=== PATIENT | female | born 1995 | race Caucasian/White ===

== ENCOUNTER 2017-12-06 13:01 | Inpatient (IN) | payer OTHER ==
--- NOTE | 2017-12-06 13:07 | EDPHY ---
H & P Time Seen by Provider: 12/06/17 13:06 HPI/ROS: CHIEF COMPLAINT: Overdose HISTORY OF PRESENT ILLNESS: Patient was brought in on a mental health hold. She took Klonopin and extended-release Wellbutrin, and Trazodone; 30 total. Her boyfriend woke up from a nap in came out to see the patient noticed she was acting funny at which time she admitted to him that she had overdosed. Patient arrives on a mental health hold for overdose with intent to injure herself. Currently has no medical complaints. Brought in by EMS. REVIEW OF SYSTEMS: Eye: no change in vision ENT: no sore throat Cardiac: no chest pain or syncope Pulmonary: no cough or SOB Abdomen: no vomiting, diarrhea, abdominal pain Musculoskeletal: no back pain Skin: no rash Neuro: no headache Constitutional: no fever : no urinary symptoms A comprehensive 10 point review of systems is otherwise negative aside from elements mentioned in the history of present illness. PAST MEDICAL HISTORY: Thyroid, depression, anxiety. Social history: Denies alcohol General Appearance: Sleepy but answers questions and is cooperative. Eyes: No scleral icterus. ENT, Mouth: Normal mucous membranes. Respiratory: Normal respiratory effort, breath sounds equal, lungs are clear to auscultation. Cardiovascular: Regular rate and rhythm. Gastrointestinal: Abdomen is soft and non tender. Neurological: Alert, face symmetric, normal motor and sensory in extremities. No clonus. Toes downgoing bilaterally. Skin: Warm and dry, no rashes. Musculoskeletal: No peripheral edema. Psychiatric: Patient has depressed affect. Emergency Department course/MDM: Screening laboratory ordered. Patient is sleepy but appears to be protecting her airway at this point. Since she has overdosed on multiple medications including extended-release Wellbutrin she will be admitted to the ICU on a mental health hold for observation, as she is at risk for seizures for at least the next 24 hr. 1318: Babar Navarro. 1510: 98/62, hr 77. Sleeping but protecting her airway. Constitutional: Initial Vital Signs Temperature (C) 37 C 12/06/17 13:01 Heart Rate 91 12/06/17 13:01 Respiratory Rate 14 12/06/17 13:01 Blood Pressure 134/95 H 12/06/17 13:01 O2 Sat (%) 98 12/06/17 13:01 O2 Delivery Mode Room Air Allergies/Adverse Reactions: No Known Allergies Allergy (Verified 12/06/17 13:55) Home Medications: Medication Instructions Recorded Bupropion HCl [Wellbutrin Xl] 300 mg PO DAILY 12/06/17 Thyroid [Alpine Thyroid 60 MG (*)] 90 mg PO Q2D 12/06/17 Thyroid [Alpine Thyroid 60 MG (*)] 120 mg PO Q2D 12/06/17 Venlafaxine Xr [Effexor Xr 75MG 75 mg PO DAILY 12/06/17 (*)] clonazePAM [klonoPIN (*)] 0.5 mg PO DAILY 12/06/17 traZODone [traZODONE 100MG (*)] 100 mg PO HS PRN 12/06/17 Medical Decision Making - Diagnostics EKG Interpretation: 12-lead EKG interpreted by me; official reading is in trace master. My interpretation is sinus rhythm rate 90 with normal intervals. Differential Diagnosis: The differential considered including but not limited to alcohol intoxication, drug overdose, functional disorder, primary psychiatric disorder. Critical Care Time: Critical care time spent by me, Dr. Trujillo, exclusively with the care of this patient was 20 minutes, exclusive of PA or MACHINE CEMENTER time and exclusive of separate procedures. The organ system at risk was metabolic and I ordered diagnostics, monitoring hospitalist consultation to stabilize the patient and prevent worsening of the patient's condition. - Data Points Laboratory Results: Laboratory Results 12/06/17 13:05 12/06/17 13:05 12/06/17 12/06/17 12/06/17 13:20 13:05 13:05 WBC RBC Hgb Hct MCV MCH MCHC RDW Plt Count MPV Neut % (Auto) Lymph % (Auto) Long % (Auto) Eos % (Auto) Baso % (Auto) Nucleat RBC Rel Count Absolute Neuts (auto) Absolute Lymphs (auto) Absolute Monos (auto) Absolute Eos (auto) Absolute Basos (auto) Absolute Nucleated RBC Immature Gran % Immature Gran # Sodium 141 mEq/L mEq/L (135-145) Potassium 4.7 mEq/L mEq/L (3.5-5.2) Chloride 104 mEq/L mEq/L (97-110) Carbon Dioxide 24 mEq/l mEq/l (22-31) Anion Gap 13 mEq/L mEq/L (8-16) BUN 16 mg/dL mg/dL (7-23) Creatinine 0.8 mg/dL mg/dL (0.6-1.0) Estimated GFR > 60 Glucose 90 mg/dL mg/dL (70-100) Calcium 9.7 mg/dL mg/dL (8.5-10.4) Beta HCG, Qual NEGATIVE Salicylates < 1.0 mg/dL L mg/dL (2.0-20.0) Urine Opiates Screen NEGATIVE (NEGATIVE) Acetaminophen < 10 mcg/mL L mcg/mL (10-30) Urine Barbiturates NEGATIVE (NEGATIVE) Ur Phencyclidine Scrn NEGATIVE (NEGATIVE) Ur Amphetamine Screen NEGATIVE (NEGATIVE) U Benzodiazepines Scrn NEGATIVE (NEGATIVE) Urine Cocaine Screen NEGATIVE (NEGATIVE) U Marijuana (THC) Screen NON-NEGATIVE H (NEGATIVE) Ethyl Alcohol < 10 mg/dL mg/dL (0-10) 12/06/17 13:05 WBC 7.42 10^3/uL 10^3/uL (3.80-9.50) RBC 5.30 10^6/uL 10^6/uL (4.18-5.33) Hgb 14.9 g/dL g/dL (12.6-16.3) Hct 46.0 % % (38.0-47.0) MCV 86.8 fL fL (81.5-99.8) MCH 28.1 pg pg (27.9-34.1) MCHC 32.4 g/dL g/dL (32.4-36.7) RDW 14.4 % % (11.5-15.2) Plt Count 220 10^3/uL 10^3/uL (150-400) MPV 10.3 fL fL (8.7-11.7) Neut % (Auto) 69.0 % % (39.3-74.2) Lymph % (Auto) 21.6 % % (15.0-45.0) Long % (Auto) 7.5 % % (4.5-13.0) Eos % (Auto) 1.3 % % (0.6-7.6) Baso % (Auto) 0.5 % % (0.3-1.7) Nucleat RBC Rel Count 0.0 % % (0.0-0.2) Absolute Neuts (auto) 5.11 10^3/uL 10^3/uL (1.70-6.50) Absolute Lymphs (auto) 1.60 10^3/uL 10^3/uL (1.00-3.00) Absolute Monos (auto) 0.56 10^3/uL 10^3/uL (0.30-0.80) Absolute Eos (auto) 0.10 10^3/uL 10^3/uL (0.03-0.40) Absolute Basos (auto) 0.04 10^3/uL 10^3/uL (0.02-0.10) Absolute Nucleated RBC 0.00 10^3/uL 10^3/uL (0-0.01) Immature Gran % 0.1 % % (0.0-1.1) Immature Gran # 0.01 10^3/uL 10^3/uL (0.00-0.10) Sodium Potassium Chloride Carbon Dioxide Anion Gap BUN Creatinine Estimated GFR Glucose Calcium Beta HCG, Qual Salicylates Urine Opiates Screen Acetaminophen Urine Barbiturates Ur Phencyclidine Scrn Ur Amphetamine Screen U Benzodiazepines Scrn Urine Cocaine Screen U Marijuana (THC) Screen Ethyl Alcohol Departure - Departure Disposition: [facility] Acute Clinical Impression: Drug overdoses Qualifiers: Encounter type: initial encounter Injury intent: intentional self-harm Qualified Code(s): T50.902A - Poisoning by unspecified drugs, medicaments and biological substances, intentional self-harm, initial encounter Condition: Fair
--- NOTE | 2017-12-06 13:12 | CPEKG ---
Heart Rate: 90 RR Interval: 667 P-R Interval: 144 QRSD Interval: 84 QT Interval: 380 QTC Interval: 465 P Friendship: 58 QRS Friendship: 84 T Wave Friendship: 26 EKG Severity - NORMAL ECG - EKG Impression: SINUS RHYTHM Electronically Signed By: Shun Trujillo 06-Dec-2017 13:20:15
[2017-12-06 13:22] LABS: PLATELET COUNT 220 10^3/uL (150-400)
[2017-12-06] MEDS ORDERED: PROMETHAZINE HCL 25 MG/ML INJ IVP PRN (13:56)
[2017-12-06] MEDS ORDERED: ACETAMINOPHEN 325 MG TAB PO PRN (13:56)
[2017-12-06] MEDS ORDERED: LR 1,000 ML IV SCH (14:30)
--- NOTE | 2017-12-06 19:09 | PDGENHP ---
History and Physical History and Physical: CC: Intentional overdose HISTORY: This patient is long history of anxiety did disorder and depression and alcohol use comes in via the ER today brought in by boyfriend with an intentional suicide attempt, and sent sternal polypharmacy overdose. It sounds like the patient took a lot of prescribed tablets somewhere around mid day today but the timing is not entirely clear. There is a bottle of Wellbutrin 300 mg which has been emptied and it appears that his many as 20 tablets may be missing in appropriately. There also bottles of Klonopin and trazodone and the patient reports taking significant over doses of those but is not possible to determine number of pills. These are medicines that were prescribed to her by her psychiatrist. The patient herself is not really able to give me any other significant history at this time due to significant sedation. Most history comes to me via the ER staff and her boyfriend who was here at the bedside with her. She does admit to drinking regularly. Her boyfriend tells me that she drinks a glass of vodka that he thinks might be 5-6 shots of vodka at least every other day and often daily. The patient did mention that she has drinks daily but she was unable to elaborate or clarify. It sounds like there is no significant street drug use but some marijuana use as well. It does not sound like she has had any other suicide attempts. The patient's exact intention and thought processes leading to this overdose are unavailable issues not able to provide this history for us. 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 I have reviewed the list and ordered appropriate medicines. PHYSICAL EXAMINATION: Vital Signs: So far stable vital signs without hypoxia or fever Loading Checker: Sinus rhythm with no other concerning abnormalities Examination: General: Quite sedated but awakens to occasionally attempt to mumble answer to a question, opens eyes and does briefly make eye contact, falls asleep quickly moved since speaks slowly when she does. No signs of anxiety or tremor. No specific signs of focal neurologic abnormality but exam severely limited by her sedation. Skin: warm, dry, good color, no rash HEENT: normal with no signs of injury Neck: no mass or jvd Resps: relaxed but slow Lungs: clear breath sounds Heart: regular, no murmur Abdomen: soft, nondistended, no signs of tenderness but exam limited, +BS, no mass Upper Extremities: normal Lower Extremities: no edema, warm No Bleeding or bruising IV site: looks normal LABORATORY DATA: Initial CBC and metabolic panel negative test negative Tox screen positive for marijuana Negative tests for alcohol, Tylenol, salicylates RADIOLOGY STUDIES: No studies at this time 12 LEAD EKG: I reviewed the tracing from the ER study, a sinus rhythm with no other concerning abnormalities ASSESSMENT: -acute encephalopathy from polypharmacy intentional ingestion -intentional polypharmacy overdose, suspect suicide attempt -ongoing depression and anxiety disorders -chronic alcohol usage fairly substantial level, either daily or at least every other day a little bit hard to determine -marijuana abuse This patient is at very high risk for seizures including status epilepticus, and the seizures could be delayed in onset even 2-3 days after her ingestion. She is also at high risk of serotonin syndrome with dangerous instabilities of blood pressure and pulse rates, ventricular arrhythmias, other neurologic complications, nausea vomiting with aspiration risk, any of which could be aggravated by potential for alcohol withdrawal, as well as the risk of developing potentially severe alcohol withdrawal syndrome. She will need very close monitoring, seizure precautions, supportive care and may need other specific interventions including benzodiazepines, Precedex drip, pressors, or other measures. Clearly when she is done with this she will need further assessment from mental health standpoint PLANS: -patient is on an M1 hold --inpatient admission to ICU -supportive care with hydration, seizure precautions, DVT prophylaxis, per peptic ulcer prophylaxis -other interventions will depend on her progress and other complications that arise, see above -eventual mental health evaluation when medically stable otherwise I reviewed all the above in detail at length with the patient's boyfriend at the bedside today. I have reviewed the patient's case in detail with Dr. Elias Josue
--- NOTE | 2017-12-06 19:38 | PDMN ---
Medical Necessity Medical necessity: C/M review: Patient meets INPT criteria under [facility] Drug ingestion or overdose: Acute encephalopathy from polypharmacy (Wellbutrin , Klonopin, Trazadone) intentional overdose, suspect suicide attempt, requiring future mental health assessment during this admission when medically stable, ongoing IV fluids, M1 hold, seizure precautions, CIWA protocol, close monitoring in ICU, comorbid depression, anxiety, alcohol abuse, chronic alcohol usage at a fairly substantial level, patient is at high risk is seizures, serotonin syndrome alcohol withdrawal. anticipates > 2 MN LOS foe ongoing med nec for eval and TX of above.
[2017-12-06] MEDS ORDERED: FAMOTIDINE 20 MG TAB PO SCH (21:00)
[2017-12-06] MEDS: LORazepam 2 MG/ML INJ IVP PRN (21:56)
--- NOTE | 2017-12-06 22:36 | HOSPPROG ---
Hospitalist Progress Note Assessment/Plan: 35 min of critical care time spent with this patient, at bedside, with , with RN, addressing the following issues: -RN notified me of seizure-like activity characterized as bilateral upper extremity shaking, rhythmic movements, as well as back and forth head movements , seemingly uncontrollable but without overt loss of consciousness, patient able to follow commands after the event abated, 1-2 minutes in duration -discussed with RN, ordered as needed IV Ativan to be available if movements recurred as patient is high risk for seizure activity given her overdose of 20- 30 pills of Wellbutrin, in combination of trazodone, possibly venlafaxine, Klonopin, as well as heavy drinking history and not drinking for approximately 2 days -approximately 10:00 p.m., the patient experienced recurrence of the similar movements as well as arching her back, witnessed by her partner, received 1 mg of IV Ativan by nurse, then movements reoccurred -evaluated patient at bedside, she is currently able to follow some 1 step commands including 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, patient unable to focus her eyes, has reactive pupils, verbalizing nonsensical speech, heart rate is tachycardic, around 120, with regular rhythm, lungs are clear to auscultation but patient does not participate in deep inspiratory 1 exam, she does not appear to be seizing on my evaluation -given patient's 3rd recurrence of possible seizure-like activity as well as her exceptionally high risk of ongoing seizure and possibility of subclinical status, will load her with 500 mg of IV Keppra and continue the as needed Ativan if seizure-like activity reoccurs -given her risk of aspiration and her partners report of coughing after the 2nd episode, will get a chest x-ray to evaluate for possible aspiration, repeating her CBC, metabolic profile, lactic acid level -will change her IV fluids from lactated Ringer's to D5 half normal saline given her possibility of seizure and subsequent lactic acidosis -will continue on seizure precautions and order neuro consultation for tomorrow a.m. -verbally signed out the patient's situation to juvenile correctional officer Dr. Karlie Cho Objective: Vital Signs Temp Pulse Resp BP Pulse Ox 36.8 C 115 H 18 120/80 96 12/06/17 19:00 12/06/17 21:40 12/06/17 21:40 12/06/17 21:40 12/06/17 21:40 12/05/17 12/06/17 12/07/17 05:59 05:59 05:59 Intake Total 1000 Output Total 1100 Balance -100 ICD10 Worksheet Patient Problems: Problems Problem Status Onset Drug overdoses Acute
[2017-12-06] MEDS: levETIRAcetam 500MG/NACL 100 ML IV SCH (22:53)
[2017-12-06] MEDS: FAMOTIDINE 20 MG/NACL 50 ML IV SCH (22:58)
[2017-12-06] MEDS: D5W 1/2 NS 1,000 ML IV SCH (22:58)
[2017-12-06 23:02] LABS: PLATELET COUNT 222 10^3/uL (150-400)
[2017-12-07] MEDS ORDERED: MAGNESIUM SULF 1 GM/DEXTROSE 100 ML IV ONE (00:02)
[2017-12-07 05:09] LABS: PLATELET COUNT 226 10^3/uL (150-400)
[2017-12-07] MEDS: D5W 1/2 NS 1,000 ML IV SCH ×2 (05:51→16:22)
[2017-12-07] MEDS: LORazepam 2 MG/ML INJ IVP PRN ×2 (07:30→10:02)
[2017-12-07] MEDS: levETIRAcetam 500MG/NACL 100 ML IV SCH ×2 (09:23→21:37)
[2017-12-07] MEDS: ENOXAPARIN 40 MG/0.4 ML SYR SC SCH (09:55)
[2017-12-07] MEDS: FAMOTIDINE 20 MG/NACL 50 ML IV SCH ×2 (09:55→21:37)
[2017-12-07] MEDS ORDERED: THIAMINE HCL 500 MG in NS 250 ML IV ONE (10:31)
--- NOTE | 2017-12-07 11:43 | CPEKG ---
Heart Rate: 112 RR Interval: 536 P-R Interval: 164 QRSD Interval: 96 QT Interval: 348 QTC Interval: 475 P Lincoln: 67 QRS Lincoln: 112 T Wave Lincoln: 5 EKG Severity - OTHERWISE NORMAL ECG - EKG Impression: SINUS TACHYCARDIA EKG Impression: RIGHT AXIS DEVIATION Electronically Signed By: Tadeo Meza 07-Dec-2017 12:20:48
--- NOTE | 2017-12-07 11:49 | HOSPPROG ---
Hospitalist Progress Note Assessment/Plan: DIAGNOSES: -acute suicide attempts -acute intentional overdose with multiple prescription medications including trazodone Wellbutrin and Klonopin -heavy alcohol use, probably daily -acute toxidrome including tachycardia, severe delirium, markedly increased psychomotor activity, and witnessed likely seizures as well as some myoclonus activity -the toxidrome mentioned above could be direct drug toxicity, serotonin syndrome and/or alcohol withdrawal syndrome -suspect thiamine deficiency -chronic depression and anxiety disorder -chronic hypothyroidism on thyroid replacement, elevated TSH now could indicate noncompliance with medication, under dosing, or could be a lab abnormality caused by her acute illness as above I reviewed the patient's care today with Dr Elias Josue Also seen on multidisciplinary rounds At this time her tachycardia and psychomotor activity or significant enough that I believe she needs to be treated with ongoing sedation medications and will start with some scheduled Ativan which will be helpful for reducing seizure activity, but if this is not enough to improve her clinical picture may need to begin some Precedex intravenously as well. PLANS: -continue supportive care and hydration -follow electrolyte levels closely -continue Keppra for now -add scheduled Ativan -follow response closely and consider adding Precedex depending on how she is doing -at this time there is no hypotension or bradycardia so no support needed for those, but those are possibilities and the nursing staff has been instructed to watch carefully for for these and report them -will check free T3 and free T4, and will repeat TSH as she resolved her acute syndrome, will continue for the moment giving her her prescribed dose of thyroid replacement SUBJECTIVE: Patient is unable to describe any symptoms Family and nursing staff note ongoing agitation confusion and 1 more episode this morning that appeared as possible seizure OBJECTIVE Vitals reviewed: Remains tachycardic 115-120, blood pressure and respirations are stable no fever Family Therapist, my review: Sinus tachycardia Exam: Rapidly fluctuating levels of alertness, severely delirious, market increase in psychomotor activity thrashing around in the bed very frequently, shifting attention to objects in the room and some objects that are not there indicating likely hallucinations, her speech output is now unintelligible, no longer following commands, pupils are equal, no tremor, no apparent signs of focal weakness, appears extremely anxious, family not sure if she recognizes them are not, she does briefly make eye time contact on some occasions when spoken to skin warm dry color ok resps not labored lungs clear BSs heart regular but fairly tachycardic abd soft nondistended, bowel sounds present limbs warm, no edema iv site ok Laboratory data: There is mild metabolic acidosis with anion gap of 17 Chemistries otherwise stable, white blood cell count is elevated A blood gas was done showing a pH 7.42 A TSH is done and shows level of 16, hard to know with certainty whether this is a real hypothyroid state or is altered laboratory measurements related to her acute illness; she does take thyroid replacement medication at home and I am unable to assess whether she is compliant with that. Objective: Vital Signs Temp Pulse Resp BP Pulse Ox 36.8 C 117 H 21 H 134/71 H 94 12/07/17 08:00 12/07/17 08:00 12/07/17 08:00 12/07/17 08:00 12/07/17 08:00 Laboratory Results 12/07/17 04:50 12/07/17 04:50 12/06/17 12/07/17 12/08/17 06:59 06:59 06:59 Intake Total 2300 Output Total 1100 Balance 1200 - Time Spent With Patient Time Spent with Patient: greater than 35 minutes Time Spent with Patient: Greater than 35 minutes spent on this patients care, greater than 50% of time spent counseling, educating, and coordinating care regarding the above mentioned plan. ICD10 Worksheet Patient Problems: Problems Problem Status Onset Drug overdoses Acute
--- NOTE | 2017-12-07 11:54 | ASMTCMCOM ---
CM Note CM Note Notes: 22 yaer old female admitted for Poly drug OD, Suicide attempt, Depression, Anxiety. Has a hx of ETOH and THC abuse. Confused, possible sz, Incontinent, ETOH W/D? Patient will need to be evaluated by TLC when medically stable. CM to follow. Date Signed: 12/07/2017 11:54 AM Electronically Signed By:Vesna Jaimes LCSW
--- NOTE | 2017-12-07 12:24 | ASMTCMCOM ---
CM Note CM Note Notes: Met with family and offered support and talked about what happens when patient clears. Patrick, patient's boyfriend is feeling responsible and having a hard time leaving her side. RN has done a good job of explaining symptoms of OD. CM to follow. Date Signed: 12/07/2017 12:23 PM Electronically Signed By:Vesna Jaimes LCSW
--- NOTE | 2017-12-07 13:20 | NEUROPROG ---
Assessment: HOSPITAL NEUROLOGY CONSULT REQUESTING: Man Sotelo MD REASON: possible seizures HPI: 22 year old woman with a history of anxiety/depression and alcohol abuse admitted yesterday after an intentional overdose with clonazepam, bupropion and trazodone. She has been markedly encephalopathic, with abnormal behaviors and movements concerning for seizure. Last evening the patient had 3 events concerning for seizure with extremity jerking/thrashing, arching of the back and shaking the head [id number] without LOC. Her partner, Patrick, was reached by phone and didn't provide much more in the description of the events, with exception that her eyes were closed with the events. This morning nursing witnessed an event with back arching, limb stiffening and fine shaking of the limbs and eye closure to which she was responsive to the nurse during the event. Patient was started on levetiracetam last evening after multiple doses of lorazepam didn't seem to prevent recurrent episodes. ROS: As per the HPI, otherwise a complete 12 point ROS was performed and is negative ALLERGIES AND MEDS: As recorded in the EMR - reviewed and reconciled PFSH: As per the intake H&P by Dr. Sotelo from yesterday EXAM: VS reviewed in EMR GEN: WDWN visibly agitated HEENT: NCAT, sclera anicteric, conjunctiva not injected, MMM, oropharynx clear, no scalp tenderness NECK: supple, nontender, no meningismus CV: RRR s1 s2 wo m/r/c/g. Carotid pulses 2+ wo bruit NEURO: MS: she is disoriented and fluctuating in her LOC going from somnolent to agitated. Her speech is at times appropriate to simple questions like name and age, but most of the time it is nonsensical. She does follow simple appendicular commands with prompting. Unable to assess higher cortical function due to encephalopathy. CN: pupils 5mm round and reactive. Unable to visualize fundi due to patient movement. Blinks to threat OU. Primary gaze centered. Full horizontal ocular motility with facial tracking, but profound motor impersistence. Facial sensation preserved to nox stim. Face symmetric. Hearing grossly intact to speech. Palatoglossal movements intact. Shoulder shrug intact MOTOR: normal bulk. Paratonic throughout. Moves all extremities against gravity with good resistive force to passive movement. She will not participate in formal segmental exam. She is restless and does thrash about at times, but no pathologic movements noted. SENSORY: withdraws to nox stim briskly in all extremities COORD: unable to assess REFLEX: plantars down. No clonus. DTRS 3/4. GAIT: unable to assess DATA REVIEW: Labs reviewed in EMR PERSONALLY INTERPRETED RESULTS AND DATA: nil IMPRESSION AND RECOMMENDATIONS: // TOXIC ENCEPHALOPATHY // PAROXYSMAL SPELLS OF ABNORMAL BEHAVIOR Patient with spells of abnormal behavior which aren't too compelling for seizure. Specifics that argue against seizure include [id number] head movement, eye closure, ability of patient to respond during some episodes. She does have a substrate for provoked seizures, including possible alcohol abuse with withdrawal and ingestion of excessive bupropion. In any event, I don't think it is unreasonable to continue levetiracetam for prophylaxis given her TRIAGE SPECIALIST hyperexcitability. However, it would also be reasonable to discontinue and observe. Can treat seizures with PRN lorazepam for activity concerning for seizure lasting longer than 5 minutes. Continue with seizure precautions. Continue supportive measures as per the primary team for overdose and alcohol withdrawal. Have family take smart-phone video of any concerning episodes for our review if needed. Will sign off. Recall PRN. Objective: Vital Signs Temp Pulse Resp BP Pulse Ox 36.9 C 113 H 18 113/73 96 12/07/17 12:00 12/07/17 12:00 12/07/17 12:00 12/07/17 12:00 12/07/17 12:00 Laboratory Results 12/07/17 04:50 12/07/17 04:50 12/06/17 12/07/17 12/08/17 05:59 05:59 05:59 Intake Total 2300 Output Total 1100 Balance 1200 Allergies/Adverse Reactions: No Known Allergies Allergy (Verified 12/06/17 13:55)
[2017-12-07] MEDS: THIAMINE HCL 500 MG in NS 100 ML IV SCH (13:42)
[2017-12-07] MEDS: LORazepam 2 MG/ML INJ IVP SCH ×3 (14:22→21:37)
--- NOTE | 2017-12-07 21:50 | GCON ---
[f rep st] CONSULTATION CRITICAL CARE CONSULTATION DATE OF CONSULTATION: 12/07/2017 REASON OF CONSULTATION: Drug overdose, suicide attempt. HISTORY: The patient is a 22-year-old with a history of anxiety and depression. She was admitted ye sterday after she took Wellbutrin 300 mg, approximately 20 tablets, Klonopin, trazodone, and possibly other unknown medications. She was brought in by her boyfriend. He states that she drinks signific ant amount of vodka almost daily. History is impossible to get from the patient. She has not been h ospitalized here previously. HOME MEDICATIONS: Included Klonopin, Wellbutrin, trazodone, Ambien, Effexor, as well as thyroid. PAST MEDICAL HISTORY: Remarkable for issues as outlined above. DRUG ALLERGIES: No known drug allergies. SOCIAL HISTORY: The patient apparently lives with her boyfriend. Her family is not here, but her brandon janina's family is here. Family dynamics appear to be somewhat unusual. Tobacco was apparently neg ative. Alcohol as noted above. FAMILY HISTORY: Unknown. REVIEW OF SYSTEMS: Unobtainable. By report, a relative to either her or her boyfriend's family comm itted suicide recently. PHYSICAL EXAMINATION: GENERAL: Reveals a woman who is alternating between somnolent and agitated. She responds to questions with nonsensical words. She appears to be oriented to herself only. VITAL SIGNS: Blood pressure is 125/90, heart rate 100 with sinus tachycardia on the monitor. She is afeb rile. Respiratory rate is 14. On room air, saturations are 96.%. HEENT: Remarkable for round, rel atively large equal pupils. They are reactive. There is ocular myoclonic activity. Mucous membrane s are dry. There is no guarding, lymphadenopathy or thyromegaly. The chest is clear bilaterally. H EART: Tachycardiac without significant murmur or gallop. ABDOMEN: Overweight, soft and not apparent ly tender. Bowel sounds are present, but diminished. EXTREMITIES: Without edema or obvious cords. SKIN: Without rash or lesions. NEUROLOGIC: Quite bizarre. She will be unarousable and appear sedat ed and will then sit upright in bed, flail her arms and legs around. She has occasional myoclonic ac tivity in the extremities. Questionable seizure activity was observed earlier and she refused Ativan and was started on Keppra. DATABASE: Chest x-ray on admission was essentially clear. There is an area of minimal atelectasis a t the left base. White blood cell count is 10,400, hematocrit 45. Platelets are normal. Venous lact ate is 2.5. Venous blood gas showed a pH of 7.42, pCO2 of 33, and pO2 of 49. Chemistries are within normal limits with the exception of a CO2 of 20 and an anion gap 17. Liver function studies are nor mal. TSH is elevated at 16. Beta HCG is negative. Tox screen was negative except for THC. Blood a lcohol, acetaminophen and salicylates were all negative. IMPRESSION: 1. Polydrug overdose. This was secondary to a polydrug ingestion, a serious suicide attempt. She i s on a M1 hold. There are no antidotes to any of the drugs she took. Treatment is supportive. Ther e is a question of seizures. She has been seen by Neurology and this is felt to be less likely. Her seizure-like activity is likely secondary to myoclonic activity and the affects of her overdose. Se rotonin syndrome is certainly possible. She is a chronic alcoholic. Alcohol withdrawal could not be assessed at this time. 2. Suicide attempt. She is on an M1 hold. 3. History of chronic alcohol abuse. She is being treated with scheduled Ativan. She will be given thiamine. She can be placed on the Clinical [place] Withdrawal Assessment protocol if indicated o nce her acute drug toxicities related to her ingestion have resolved. 4. Acute delirium, secondary to #1. PLAN AND RECOMMENDATIONS: This patient will be monitored closely in the intensive care unit. Intrav enous fluids will be continued. Keppra will be continued for now and if no seizure activity is obser ish over the next 24 hours, then this possibly can be discontinued. Ativan will be given both on a s cheduled basis and as needed. Thiamine will be added to her regimen. Prophylactic medications will include famotidine and enoxaparin. Bedside swallow examination will be needed secondary to her profo undly altered mental status. /[id number]/MODL
[2017-12-08] MEDS: D5W 1/2 NS 1,000 ML IV SCH ×3 (01:00→18:31)
[2017-12-08] MEDS: LORazepam 2 MG/ML INJ IVP SCH ×6 (02:05→20:54)
[2017-12-08 05:42] LABS: PLATELET COUNT 203 10^3/uL (150-400)
[2017-12-08] MEDS: FAMOTIDINE 20 MG/NACL 50 ML IV SCH ×2 (08:38→20:53)
[2017-12-08] MEDS: levETIRAcetam 500MG/NACL 100 ML IV SCH (08:38)
[2017-12-08] MEDS: ENOXAPARIN 40 MG/0.4 ML SYR SC SCH (08:39)
[2017-12-08] MEDS ORDERED: THIAMINE HCL 100 MG in NS 250 ML IV SCH (09:00)
[2017-12-08] MEDS: THYROID 60 MG TAB PO SCH (09:31)
--- NOTE | 2017-12-08 09:51 | PDINTPN ---
Salesperson Toy [employer] Accessories Progress Note Assessment/Plan: Assessment/Plan: * Polysubstance overdose-including Wellbutrin Klonopin trazodone. * Anxiety depression * Suicide attempt-M1 hold * Alcoholism * Alcohol withdrawals with acute delirium tremens-improving -will continue [facility] protocol * DVT/PE prophylaxis * Nutrition-on hold * Hypothyroidism Subjective: More awake. Still with periods of agitation. Objective: Vital Signs Temp Pulse Resp BP Pulse Ox 36.8 C 92 13 115/87 H 96 12/08/17 08:00 12/08/17 08:00 12/08/17 08:00 12/08/17 08:00 12/08/17 08:00 Laboratory Results 12/08/17 05:34 12/08/17 05:34 12/07/17 12/08/17 12/09/17 05:59 05:59 05:59 Intake Total 2300 3783 Output Total 1100 Balance 1200 3783 Laboratory Results 12/08/17 05:34 12/08/17 05:34 12/08/17 12/07/17 05:34 04:50 Calcium 8.7 mg/dL mg/dL (8.5 - 10.4) Total Bilirubin 0.4 mg/dL mg/dL (0.1 - 1.4) Conjugated Bilirubin 0.1 mg/dL mg/dL (0.0 - 0.5) Unconjugated Bilirubin 0.3 mg/dL mg/dL (0.0 - 1.1) AST 24 IU/L IU/L (14 - 46) ALT 21 IU/L IU/L (9 - 52) Alkaline Phosphatase 75 IU/L IU/L (38 - 126) Total Protein 7.1 g/dL g/dL (6.3 - 8.2) Albumin 3.6 g/dL g/dL (3.5 - 5.0) TSH 16.100 uIU/mL H uIU/mL (0.465 - 4.680) Free T4 0.65 ng/dL ng/dL (0.59 - 2.19) Free T3 2.44 pg/mL L pg/mL (2.77 - 5.27) - Time Spent With Patient Time Spent With Patient: 35 min of time spent with patient, over 1/2 involved with coordination of care or counseling. Case discussed extensively with the patient's mother. Case also discussed with Nursing. Physical Exam - Physical Exam General Appearance: other (Awake), No alert EENT: PERRL/EOMI Neck: non-tender, full range of motion, supple, normal inspection Respiratory: chest non-tender, lungs clear, normal breath sounds Cardiac/Chest: normal peripheral pulses, regular rate, rhythm Abdomen: normal bowel sounds, non-tender, soft Pelvic Exam: deferred Rectal: deferred Skin: normal color, warm/dry Extremities: normal range of motion, non-tender, normal inspection, normal capillary refill Neuro/Psych: No alert, No oriented x 3 ICD10 Worksheet Patient Problems: Problems Problem Status Onset Drug overdoses Acute
--- NOTE | 2017-12-08 11:44 | HOSPPROG ---
Hospitalist Progress Note Assessment/Plan: DIAGNOSES: -acute suicide attempts -acute intentional overdose with multiple prescription medications including trazodone Wellbutrin and Klonopin -heavy alcohol use, probably daily -acute toxidrome including tachycardia, severe delirium, markedly increased psychomotor activity, and witnessed likely seizures as well as some myoclonus activity -suspect serotonin syndrome has been involved -seizures induced by ingested medications as above; appear controlled currently on Keppra and Ativan -the toxidrome mentioned above could be direct drug toxicity, serotonin syndrome and/or alcohol withdrawal syndrome -suspect thiamine deficiency -chronic depression and anxiety disorder -under treated hypothyroidism I reviewed the patient's care today with Dr Elias Jsoue Also seen on multidisciplinary rounds At this time her tachycardia and psychomotor activity or significant enough that I believe she needs to be treated with ongoing sedation medications and will start with some scheduled Ativan which will be helpful for reducing seizure activity, but if this is not enough to improve her clinical picture may need to begin some Precedex intravenously as well. PLANS: -continue supportive care and hydration -follow electrolyte levels closely -continue Keppra for now -continue scheduled Ativan to treat her agitation hyperadrenergic state and for seizure prophylaxis -follow response closely and consider adding Precedex if she worsens -will increase her thyroid dose and follow closely but this will need ongoing follow-up in outpatient setting -remains on M1 hold; will need mental health evaluation when she is medically stable and able to participate, suspect this is days off SUBJECTIVE: Patient is unable to describe any symptoms There have been no more seizures today or overnight OBJECTIVE Vitals reviewed: Tachycardia resolved with pulse now in the mid 80s, blood pressure and respirations are stable no fever Biodiesel Plant Operations Engineer, my review: Sinus tachycardia Exam: Remains severely delirious today, with fluctuating levels of alertness and agitation, although is notably less agitated today than yesterday skin warm dry color ok resps not labored lungs clear BSs heart regular but fairly tachycardic abd soft nondistended, bowel sounds present limbs warm, no edema iv site ok Laboratory data: White blood cell count has improved, CBC and chemistries otherwise stable Free T3 comes back low and with her high TSH suspect this represents real undertreated hypothyroidism Objective: Vital Signs Temp Pulse Resp BP Pulse Ox 36.8 C 93 14 131/72 H 96 12/08/17 08:00 12/08/17 10:00 02/12/18 10:00 12/08/17 10:00 12/08/17 10:00 Laboratory Results 12/08/17 05:34 12/08/17 05:34 12/07/17 12/08/17 12/09/17 06:59 06:59 06:59 Intake Total 2300 3783 Output Total 1100 Balance 1200 3783 - Time Spent With Patient Time Spent with Patient: greater than 35 minutes Time Spent with Patient: Greater than 35 minutes spent on this patients care, greater than 50% of time spent counseling, educating, and coordinating care regarding the above mentioned plan. ICD10 Worksheet Patient Problems: Problems Problem Status Onset Drug overdoses Acute
[2017-12-08] MEDS: LORazepam 2 MG/ML INJ IVP PRN ×2 (12:06→13:57)
[2017-12-08] MEDS: THIAMINE HCL 500 MG in NS 250 ML IV SCH (16:40)
[2017-12-08] MEDS: THIAMINE HCL 500 MG in NS 100 ML IV SCH (16:41)
[2017-12-08] MEDS: levETIRAcetam 500 MG TAB PO SCH (20:53)
[2017-12-09] MEDS: LORazepam 2 MG/ML INJ IVP SCH ×6 (06:17→22:00)
[2017-12-09 06:48] LABS: PLATELET COUNT 201 10^3/uL (150-400)
[2017-12-09] MEDS ORDERED: THYROID 60 MG TAB PO SCH (09:00)
[2017-12-09] MEDS: ENOXAPARIN 40 MG/0.4 ML SYR SC SCH (09:15)
[2017-12-09] MEDS: levETIRAcetam 500 MG TAB PO SCH ×2 (09:15→20:03)
[2017-12-09] MEDS: FAMOTIDINE 20 MG/NACL 50 ML IV SCH (09:16)
--- NOTE | 2017-12-09 09:40 | PDINTPN ---
Integration Engineer Progress Note Assessment/Plan: Assessment/Plan: * Polysubstance overdose-including Wellbutrin Klonopin trazodone. * Anxiety depression * Mental status-markedly improved. * Suicide attempt-M1 hold stops today. * Alcoholism * Alcohol withdrawals with acute delirium tremens-improving -will continue [facility] protocol * DVT/PE prophylaxis * Nutrition-on hold * Hypothyroidism * PT/OT-will start ambulation today * Disposition-patient is not medically cleared at this point. When she is will consult Mental Health Subjective: Sitting up in chair eating. Much more alert and conversant. Objective: Vital Signs Temp Pulse Resp BP Pulse Ox 36.6 C 109 H 14 120/73 100 12/09/17 07:49 12/09/17 07:49 12/09/17 07:49 12/09/17 07:49 12/09/17 07:49 Laboratory Results 12/09/17 06:30 12/09/17 06:30 12/08/17 12/09/17 12/10/17 05:59 05:59 05:59 Intake Total 3783 1929 Output Total 150 300 Balance 3783 1779 -300 - Time Spent With Patient Time Spent With Patient: 35 min of time spent with patient, over 1/2 involved coordination of care counseling Physical Exam - Physical Exam General Appearance: alert, no apparent distress EENT: PERRL/EOMI, normal ENT inspection Neck: non-tender, full range of motion, supple, normal inspection Respiratory: chest non-tender, lungs clear, normal breath sounds Cardiac/Chest: normal peripheral pulses, regular rate, rhythm Peripheral Pulses: 2+: carotid (R), carotid (L), femoral (R), femoral (L), dorsalis-pedis (R), dorsalis-pedis (L) Abdomen: normal bowel sounds, non-tender, soft Pelvic Exam: deferred Rectal: deferred Skin: normal color, warm/dry Extremities: normal range of motion, non-tender, normal inspection, normal capillary refill Neuro/Psych: alert ICD10 Worksheet Patient Problems: Problems Problem Status Onset Drug overdoses Acute
--- NOTE | 2017-12-09 10:32 | HOSPPROG ---
Hospitalist Progress Note Assessment/Plan: DIAGNOSES: -acute suicide attempt -acute intentional overdose with multiple prescription medications including trazodone Wellbutrin and Klonopin -heavy alcohol use, probably daily -acute toxidrome including tachycardia, severe delirium, markedly increased psychomotor activity, and witnessed likely seizures as well as some myoclonus activity -suspect serotonin syndrome has been involved -seizures induced by ingested medications as above; appear controlled currently on Keppra and Ativan -the toxidrome mentioned above could be direct drug toxicity, serotonin syndrome and/or alcohol withdrawal syndrome -suspect thiamine deficiency -chronic depression and anxiety disorder -under treated hypothyroidism I reviewed the patient's care today with Dr Topher Briggs Also seen on multidisciplinary rounds Continues daily improvement but still w delirium and tachycardia, Still at seizure risk PLANS: -continue supportive care and hydration -follow electrolyte levels closely -continue Keppra for now for sz prophylaxis -trial changing Ativan to prn for agitation hyperadrenergic state -will increase her thyroid dose and follow closely but this will need ongoing follow-up in outpatient setting -remains on M1 hold; will need mental health evaluation when she is medically stable and able to participate, suspect this is days off SUBJECTIVE: main complaint is feeling tired, some sense of anger; mild ache at IV in R hand There have been no more seizures today or overnight She has not had any ativan since last night OBJECTIVE Vitals reviewed: Tachycardia is still present intermittently often up at 115 sitting in chair; no fever, otherwise stable 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, my review: Sinus tachycardia Exam: Remains quite delirious today, notably more alert and less agitated, better oriented though still slow processing and is confused, much more interactive and conversant skin warm dry color ok; IV in R hand looks good w no sign of phlebitis or cellulitis resps not labored lungs clear BSs heart regular but tachycardic abd soft nondistended, bowel sounds present limbs warm, no edema iv site ok Laboratory data: White blood cell count has improved, CBC and chemistries otherwise stable Free T3 comes back low and with her high TSH suspect this represents real undertreated hypothyroidism Objective: Vital Signs Temp Pulse Resp BP Pulse Ox 36.6 C 109 H 14 120/73 100 12/09/17 07:49 12/09/17 07:49 12/09/17 07:49 12/09/17 07:49 12/09/17 07:49 Laboratory Results 12/09/17 06:30 12/09/17 06:30 12/08/17 12/09/17 12/10/17 06:59 06:59 06:59 Intake Total 3783 1927 Output Total 150 300 Balance 3783 1779 -300 ICD10 Worksheet Patient Problems: Problems Problem Status Onset Drug overdoses Acute
[2017-12-09] MEDS: THIAMINE HCL 500 MG in NS 250 ML IV SCH (14:26)
--- NOTE | 2017-12-09 15:57 | ASMTLACE ---
DEYSIE Length of stay for Answers: 3 days current admission Acuity / Level of Answers: Yes Care: Did the patient have an inpatient admission? Comorbidities - select Answers: Other Notes: Suicide attempt, OD all that apply # of Emergency department Answers: 1-2 visits in the last 6 months Social determinants Answers: History of substance abuse (ETOH, street drugs, prescription drugs, etc.) Mental health diagnosis (anxiety, depression, pers onality disorders, etc.) Score: 14 Date Signed: 12/09/2017 03:56 PM Electronically Signed By:Vesna Jaimes LCSW
--- NOTE | 2017-12-09 16:01 | ASMTCMCOM ---
CM Note CM Note Notes: Patient clearing mentally. Visits by mother and boyfriend. To have a mental health eval when medically cleared. If patient so found to need in-pt psych, a psych facility in [place] would be appreciated so mother, who live in [place] can visit. Patient is a [employer] student. Date Signed: 12/09/2017 04:01 PM Electronically Signed By:Vesna Jaimes LCSW
[2017-12-09] MEDS: IBUPROFEN 200 MG TAB PO PRN (20:03)
[2017-12-09] MEDS: FAMOTIDINE 20 MG TAB PO SCH (20:03)
[2017-12-10] MEDS: LORazepam 2 MG/ML INJ IVP SCH ×3 (02:00→11:11)
[2017-12-10] MEDS: IBUPROFEN 200 MG TAB PO PRN (06:45)
[2017-12-10 06:58] LABS: PLATELET COUNT 196 10^3/uL (150-400)
--- NOTE | 2017-12-10 08:47 | PDINTPN ---
Explosive Technician Progress Note Assessment/Plan: Assessment/Plan: * Polysubstance overdose-including Wellbutrin Klonopin trazodone. * Anxiety depression * Mental status-markedly improved. Begin very emotional this morning * Suicide attempt-M1 hold stops today. * Alcoholism * Alcohol withdrawals -likely resolved * DVT/PE prophylaxis * Nutrition-on hold * Hypothyroidism * PT/OT-will start ambulation today * Disposition-patient is close to being medically cleared. Will discuss hospitalist Subjective: Resting comfortably. Objective: Vital Signs Temp Pulse Resp BP Pulse Ox 36.7 C 89 18 110/73 97 12/10/17 06:50 12/10/17 06:50 12/10/17 06:50 12/10/17 06:50 12/10/17 06:50 Laboratory Results 12/10/17 06:50 12/10/17 06:50 12/09/17 12/10/17 12/11/17 05:59 05:59 05:59 Intake Total 1929 2787 Output Total 150 300 Balance 1779 6877 - Time Spent With Patient Time Spent With Patient: 25 subsequent with patient, over 1/2 involved coordination of care or counseling. Case discussed with nurse Physical Exam - Physical Exam General Appearance: alert, no apparent distress EENT: PERRL/EOMI, normal ENT inspection Neck: non-tender, full range of motion Respiratory: chest non-tender, lungs clear, normal breath sounds Cardiac/Chest: normal peripheral pulses, regular rate, rhythm Peripheral Pulses: 2+: carotid (R), carotid (L), femoral (R), femoral (L), dorsalis-pedis (R), dorsalis-pedis (L) Abdomen: normal bowel sounds, non-tender, soft Pelvic Exam: deferred Rectal: deferred Skin: normal color, warm/dry Extremities: normal range of motion, non-tender, normal inspection, normal capillary refill Neuro/Psych: alert ICD10 Worksheet Patient Problems: Problems Problem Status Onset Drug overdoses Acute
[2017-12-10] MEDS: ENOXAPARIN 40 MG/0.4 ML SYR SC SCH (09:06)
[2017-12-10] MEDS: levETIRAcetam 500 MG TAB PO SCH ×2 (09:07→21:10)
[2017-12-10] MEDS: FAMOTIDINE 20 MG TAB PO SCH ×2 (09:07→21:10)
[2017-12-10] MEDS: THYROID 60 MG TAB PO SCH (09:07)
[2017-12-10] MEDS ORDERED: PNEUMOCOCCAL 0.5ML VACCINE VIAL IM ONE (09:40)
--- NOTE | 2017-12-10 15:21 | ASMTCMCOM ---
CM Note CM Note Notes: Patient evaluated by [facility]. Spoke with DIANA Ivy seaming machine operator to let her know mother of patient prefers patient be placed with [facility] which is close to her home. This makes it possible for her to visit more frequently. Cata will take this into consideration. Ctaa will contact me back when she has conferenced with the psychiatrist physical education professor. CM will follow. Date Signed: 12/10/2017 03:20 PM Electronically Signed By:Swathi Wright LCSW
--- NOTE | 2017-12-10 16:09 | HOSPPROG ---
Hospitalist Progress Note Assessment/Plan: 22 yo F w polysubstance overdose and delirium encephalopathy: appears to have largely resolved w supportive care seizures: probably not no AED's suicide attempt: on m1 hold medically cleared alcohol withdrawal: incertain if present has resolved dispo: pending [facility] eval Subjective: alert and conversant Objective: Vital Signs Temp Pulse Resp BP Pulse Ox 36.6 C 91 16 112/73 97 12/10/17 09:01 12/10/17 09:01 12/10/17 09:01 12/10/17 09:01 12/10/17 09:01 Laboratory Results 12/10/17 06:50 12/10/17 06:50 12/09/17 12/10/17 12/11/17 05:59 05:59 05:59 Intake Total 1929 2787 Output Total 150 300 Balance 1779 2487 - Physical Exam Constitutional: no apparent distress, appears nourished Eyes: PERRL, anicteric sclera Ears, Nose, Mouth, Throat: moist mucous membranes, hearing normal Cardiovascular: regular rate and rhythym, no murmur, rub, or gallop Respiratory: no respiratory distress, no rales or rhonchi Gastrointestinal: normoactive bowel sounds Genitourinary: no bladder fullness, No nix in urethra Skin: warm, normal color Musculoskeletal: full muscle strength Neurologic: AAOx3 ICD10 Worksheet Patient Problems: Problems Problem Status Onset Drug overdoses Acute
[2017-12-10 20:08] VITALS: BP 102/55; PULSE 101; RESP 12; TEMP 98.6; O2SAT 95
== END 2017-12-10 22:09 | DRG 917 ==
LOC: EDBD 13:01 → EEVIPCON 13:50 → F2N 15:35
PROVIDERS: ADMIT Internal Medicine; ATTEND Internal Medicine
DX: T42.4X2A Poisoning by benzodiazepines, intentional self-harm, initial encounter (principal); G92 Toxic encephalopathy; F32.9 Major depressive disorder, single episode, unspecified; F41.9 Anxiety disorder, unspecified; F12.10 Cannabis abuse, uncomplicated; E03.9 Hypothyroidism, unspecified
CPT/HCPCS: 80305; 84481-90; 92610-GN; G0009; G0480; J1650; J1953; J2060; J3411; J3475

== ENCOUNTER 2017-12-10 22:25 | Inpatient (IN) | payer OTHER ==
[2017-12-10] MEDS ORDERED: MAGNESIUM HYDROXIDE 30 ML UDCUP PO PRN (23:00)
[2017-12-10] MEDS ORDERED: OLANZapine DISINTEGR 5 MG TAB PO PRN (23:00)
[2017-12-10] MEDS ORDERED: MAG HYDROX/AL HYDROX/SIMETH 30 ML UDCUP PO PRN (23:00)
[2017-12-10] MEDS ORDERED: ACETAMINOPHEN 325 MG TAB PO PRN (23:00)
[2017-12-10] MEDS ORDERED: MELATONIN 3 MG TAB PO PRN (23:00)
[2017-12-10] MEDS ORDERED: NICOTINE POLACRILEX 2 MG GUM B PRN (23:00)
[2017-12-11] MEDS: THYROID 60 MG TAB PO SCH (11:08)
--- NOTE | 2017-12-11 16:09 | BCON ---
[f rep ] [facility] INTERNAL MEDICINE CONSULTATION DATE OF CONSULTATION: 12/11/2017 REFERRING PHYSICIAN: Karel Francisco MD REASON FOR REFERRAL: Medical clearance for inpatient behavioral health stay. HISTORY OF PRESENT ILLNESS: This patient was brought to the emergency department on December 06 by her boyfriend after she had overdosed on bupropion. She was admitted to the hospital and was cared for in the ICU for several days. She also had a large alcohol use habit. There was myoclonus, but most likely not seizures. There were no signs or symptoms of alcohol withdrawal, though she was maintained on the CIWA protocol. She was medically stabilized and transferred to [facility] for further psychiatric care. She currently complains of feeling tired. She says she did not sleep well for the last several days in the hospital. She is otherwise without acute complaints. PAST MEDICAL HISTORY: Hypothyroidism. PAST SURGICAL HISTORY: [place] tooth extraction. MEDICATIONS: 1. Bupropion 300 mg p.o. daily. 2. [place] Thyroid 90 mg and 120 mg on alternating days. 3. Venlafaxine 75 mg daily. 4. Clonazepam 0.5 mg daily. 5. Trazodone 100 mg at bedtime. ALLERGIES: There are no known drug allergies. SOCIAL HISTORY: She lives with her boyfriend. 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 She is a nonsmoker. She had a habit of drinking a large amount of vodka every day. FAMILY HISTORY: Noncontributory. REVIEW OF SYSTEMS: She reports she just began her menstrual period, on her usual schedule. She denies cough or dyspnea, fevers or chills, recent weight change. She reports she had constipation but it has resolved. There is no dysuria or urinary frequency. Otherwise, a 10-point review of systems is negative. PHYSICAL EXAM: VITAL SIGNS: Blood pressure is 101/54, heart rate is 105, respiratory rate is 14, oxygen saturation is 93% on room air, temperature is 36.9 degrees centigrade. Her weight is 86.2 kg for a body mass index of 33.7. GENERAL: This is an obese woman, appears her chronologic age, napping in bed, easily awakened, cooperative and in no acute distress. HEENT: Extraocular movements are intact. Pupils are equal, round, reactive to light. Mucous membranes are moist. Dentition is in good condition. She has an uncrowded airway, Mallampati class 2. NECK: Supple. HEART: There is a regular rate and rhythm with no murmurs, rubs, or gallops. LUNGS: Clear to auscultation bilaterally. ABDOMEN: Benign. EXTREMITIES: There is no cyanosis or clubbing. There is trace edema, pretibial at the ankles. NEUROLOGIC: She is alert and oriented x3. Cranial nerves 2-12 are grossly intact. There is no focal weakness. Sensation is intact to light touch. LABORATORY STUDIES: From yesterday in the hospital, CBC was entirely within normal limits. Serum chemistry revealed a slightly low CO2 of 21. Otherwise, renal function, electrolytes, and liver functions were within normal limits. She had testing of a TSH on 12/07/2017, and it was quite elevated at 16.1; on testing of thyroid hormones, free T4 was normal and free T3 was low at 2.44. Toxicology screen in the serum was negative for salicylates, acetaminophen or ethyl alcohol, and in the urine was non-negative for marijuana but otherwise negative for substances of abuse. ASSESSMENT/RECOMMENDATIONS: 1. Psychiatric issues, pending further evaluation and management per Psychiatry and the mental health team. 2. Intentional overdose. She appears to have cleared from the effects of the medications on which she overdosed. 3. Alcohol use disorder. She does not appear to be in alcohol withdrawal. She might benefit from specific substance abuse counseling. 4. Hypothyroidism with an elevated TSH. TSH is not completely reliable in the setting of acute illness. Advise rechecking TSH in 4 weeks per Primary Care Provider. She denies noncompliance with her medications. 5. Obesity. Consider avoiding medications which might cause weight gain. However, in her case, psychosocial stabilization takes first priority. I see no medical contraindications to this patient's continued stay in the inpatient behavioral health unit or to any psychiatric medications or procedures. Thank you very much for including me in the care of this patient. Please do not hesitate to contact me or the hospitalist service should there be need for further medical evaluation. /[id number]/MODL MTDD
--- NOTE | 2017-12-11 17:33 | BAPA ---
[f rep st] ADMISSION PSYCHIATRIC ASSESSMENT DATE OF SERVICE: 12/11/2017 CHIEF COMPLAINT: "I attempted suicide. 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 Presented to [facility] ED following a suicide attempt by OD on 12/06/2017. Patient was medically cleared on 2017. She was placed on a mental health hold on 12/06/2017. Prior to the expiration of the 1st hold, a 2nd hold was placed on 12/09/2017. According to the original hold, police were called by the patient's boyfriend. The boyfriend had called because the patient had taken several pills. Upon arrival , patient was responsive, but her responses were delayed. She said she taken # 10 of 0.5 mg clonazepam, about 30 Wellbutrin XL, and several trazodone pills along with using marijuana. The boyfriend said the patient has a history of depression, and has experienced suicidal thoughts in the past. Records indicate that the patient had what looked like "seizure-like behaviors," but was not conclusively deemed to be a seizure while she was in the ICU. She was placed on Keppra prophylactically, but then taken off that when it was deemed that she was outside the window of risk due to the Wellbutrin overdose, and she has no prior history of seizure disorder. So it was not thought appropriate to continue her on her seizure medications. She did have what appeared to be altered mental status, most likely delirium secondary to encephalopathy from her medication overdose, and that is what she continued to be monitored for while she was in the ICU. However, her mental status cleared, the delirium resolved with supportive care. No other interventions were recommended. Hakeem Bueno, the hospitalist who saw the patient throughout her hospitalization, said that when the seizure-like behavior that has been observed was more than likely not a seizure. Did not recommend continuing the patient on any antiepileptic drugs; that was in his note from 12/10/2017. At that time she was medically cleared, and it was deemed that she was appropriate for psychiatric hospitalization. She was also seen by Neurology while she was on the medical floor, and the neurologist who saw her was Tyree Galvez. He saw her on 12/07/2017. Dr. Galvez noted in his note on 12/07 that "this morning nursing witnessed an event with back arching, limb stiffening, fine shaking of the limbs, and eye closure to which she was responsive to the nurse during the event." Patient was started on Keppra last evening after multiple doses of lorazepam did seem to prevent recurrent episodes. Dr. Galvez concluded, "the patient with spells of abnormal behavior which are not too compelling for seizures," specifics that argue against seizure include back and forth head movement, eye closure, ability of patient to respond during the time of episode. She does have a substrate for provoked seizures, including possible alcohol abuse with withdrawal and ingestion of excessive bupropion. In any event I do not think it is unreasonable to continue Keppra for prophylaxis given her DISPATCH CLERK hyperexcitability. However, it would also be reasonable to discontinue and observe. Can treat seizures with p.r.n. lorazepam for activity concerning for seizure lasting longer than 5 minutes. Continue with seizure precautions. Continue supportive measures as per the primary team for overdose and alcohol withdrawal. 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 This MD met with the patient on the unit. Present in the room with the patient was her mother and her boyfriend. The patient had a bright and cheerful affect. She was sitting on the edge of the bed holding hands with her boyfriend. She was smiling and laughing. She was interacting appropriately. She was very animated. She was very excited that her family was there. She seemed to be in very good spirits. She admitted that she was feeling much more optimistic and positive, very future oriented. She denies any thoughts, plans, or intents to hurt herself. She said that she was no longer feeling depressed, sad, or hopeless. She no longer wanted to , and she was not having any thoughts about wanting to hurt herself. She said that she had previously been under a lot of stress, and said that she was dealing with stress related to school, not having a lot of motivation for her academic work. She was not able to complete her homework assignments, and that she had been binge drinking prior to coming into the hospital as a way to kind of handle her stress. She said that she had also been cutting. She said that she started cutting in high school, but recently it had been reduced to once a month cutting, but she said that she has been under some much more stress lately, her cutting has gotten more frequent, but she did not provide any specific details. The mother said that the patient was going to come live with her for a period of time. The patient had previously been living with her boyfriend. But mother said that she thought it would be best for the patient to be staying with her so that the mother could supervise and monitor her. The mother wanted to take her to outpatient psychiatric appointments where she lives. The Medicaid provider for her county is [facility], and the mother had requested that the rn coronary care unit set them up with an intake appointment with [facility]. The patient had previously been seen by a psychiatrist through [facility]. Patient was agreeable to that plan. She said she was looking forward to go stay with her mom, and even though she was going to be from her boyfriend, she said, "I think this is for the best." MD had a lengthy conversation with the patient as well as with her mother and the boyfriend about whether or not they thought medications had been effective for the patient. Patient said that she had been on a number of different combinations of medications recently, including Wellbutrin. Initially, she was taking Wellbutrin, Zoloft, and Abilify. She said that when she did not like the Zoloft was helping, her outpatient psychiatrist at [facility] switched her to Effexor, and so she was taking Wellbutrin, Effexor, and Abilify. She said she stopped taking the Abilify, but continued taking the Wellbutrin and the Effexor , but she was drinking during this time, and she said she did feel like she was getting more anxious and more stressed. Largely she admits due to situational stressors, but she says the external pressures made her feel even worse, and that is why she thinks she got so depressed and why she eventually said that she was "overwhelmed," did not see any way out, and that is why she took the overdose. But she admits she was intoxicated at that time, and acknowledges that she probably was not using the best judgment and does not know if she would have done it if she had been under the influence of alcohol. Patient states that she would like to get back on medications, but she would like to have a conversation with a new outpatient provider and get "a fresh pair of eyes," and a new perspective on what type of treatment would be most helpful for her. This MD talked about the risks, benefits, and side effects of polypharmacy, and what qualified as treatment resistant depression, and that as long as the patient continued to use alcohol, it was unlikely that she was going to experience maximum benefit from any psychotropic combination, and explained how alcohol affects mood, cognition, and judgment, and as well as impacts anxiety and makes it more likely that she will experience higher levels of anxiety of possibly panic attacks as she goes through cycles of intoxication and withdrawal. Patient said that she understood that. She said that she would like to get back on Wellbutrin. She was intending to stop drinking, and would seek treatment for that at [facility], either through a certified addictions counselor, an individual therapist, and/or substance abuse groups. So she was open to the idea of attending a chemical dependency IOP, but she wanted to talk to the learning and development coordinator before she made that decision. Patient was requesting to be put back on Wellbutrin. After a long conversation where she sought the advice of her mother and her boyfriend, and asked them what they had noticed when she had been on different combinations of medications, they all agreed that Wellbutrin seemed to be the medication that gave her the most "stability," and it seemed to be the "one medicine that always helped." Patient did give consent to resume Wellbutrin XL , although MD told her that she would need to be started back at a lower dose, that she could be titrated up on that dose, but that she needs to discuss that with her outpatient psychiatrist and decide what would be the most appropriate additional interventions to help her. Some of those could include nonpharmacological interventions, like therapy and groups. PAST PSYCHIATRIC HISTORY: Patient has no history of prior psych hospitalizations. She denied any prior suicide attempt, although she does report having suicidal ideation since she was an adolescent. She said she started cutting in high school to make herself feel better. She said she never did it with the intent to harm herself, but that she said that when she was under a lot of stress or she was feeling very emotional, that cutting was something that "made me feel good." Patient is currently seeing Dr. Jay Goel at [facility], and he has been prescribing a variety of medications she said that initially she started taking Wellbutrin and Zoloft , then Abilify was added, then Zoloft was stopped because she did not feel like it was helping, and Effexor was substituted for the Zoloft. She said she stopped taking the Abilify because she did not think it was doing any good. This was at a time when the patient was starting to drink more, and said that she would like to have a therapist, but so far she has not seen anyone at [facility] and does not have an outpatient therapist, but she would be interested in getting some help to learn how to cope better with her anxiety and manage her situational stressors more effectively. ALLERGIES: No known drug allergies. CURRENT MEDICATIONS: Prior to her overdose, the patient was taking Wellbutrin XL 300 mg p.o. daily, Klonopin 0.5 mg daily, [place] Thyroid 120 mg p.o. every other day, and [place] Thyroid 90 mg p.o. every other day, trazodone 100 mg p.o. q.h.s. p.r.n. for sleep, and Effexor XR 75 mg p.o. daily. The last time she took any of those medications was a week ago. On the day of her overdose she took the Wellbutrin and the Klonopin, but says she did not take the Effexor or the trazodone. That was the last time she had any of her medications except for the [place] Thyroid which was restarted when she was in the ICU. PAST MEDICAL HISTORY: Patient states that she has a history of hypothyroidism. No other chronic medical conditions. The only surgery she has had was to remove her wisdom teeth. SOCIAL HISTORY: Patient was raised by both her parents who are still . She is the youngest child, has an older brother and sister. Patient is considered a brian in college. She took a gap year after finishing high school and attended 3 years of brian college before [facility] [employer] [facility] the spring. She says that last semester she started with 4 classes , had to drop 2 of her classes. She is now struggling with the 2 classes, and is currently failing. She had been working last semester at [employer], but due to the requirements of work, she had to quit her job because she could not do that and do school both. 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 Mother says that she would like her to take a semester off school and come and stay with her, and help her get "back on her feet and feel more emotionally stable." Patient says that her boyfriend is her sole support person. She does not have any friends, and says that she does not have even any acquaintances at college. She moved in with her boyfriend in June. They live in a condo owned by her boyfriend's parents. SUBSTANCE USE HISTORY: Patient says that she has been binge drinking alcohol, more over the last several months since school has been going so poorly and she says that she smokes marijuana. She says she uses marijuana daily. Some days she says she uses several times a day, depending on what is going on. She says that since she started dating her boyfriend, she has been drinking more, up to 5 drinks a day because her boyfriend drinks. FAMILY HISTORY: Patient says that her mother has experienced depression, and currently takes Lexapro. A maternal grandmother also suffered from depression and anxiety. There was no report of any substance use problems in the family. MENTAL STATUS EXAMINATION: This is an overweight, appropriately groomed female sitting on the edge of her bed, dressed in street clothes. Her affect is bright and cheerful. She is smiling, making conversation. She is interacting appropriately with her boyfriend and her mother. She says her mood is "good." She is alert and oriented x4. Her speech is normal rate and volume, is fluent and spontaneous. Her thought process is linear and goal- directed. Her thought content reveals no evidence of delusions or hallucinations. She denies feeling depressed. She says that she no longer feels sad, helpless, or hopeless. She says that she is future oriented and is excited about going to live with her mother and getting back to a stable place in her life, and getting away from the pressures of school. Her intellect appears to be average based upon her fund of knowledge, educational history, and vocabulary. Her insight and judgment both seem to be fair. IMPRESSION: 1. Major depressive disorder, single episode, severe without psychotic features. 2. Alcohol use disorder, severe. 3. Cannabis use disorder, severe. 4. Rule out generalized anxiety disorder versus substance-induced mood disorder. 5. Psychosocial stressors include lack of social support. Boyfriend is her only relationship in her life. She says that she has tension and conflict with her parents. She has been unemployed. She is struggling in school, academic difficulties, financial problems, substance use. PLAN: 1. Admit patient to the behavioral health services inpatient unit on an M1 hold. 2. Monitor for safety and place on suicide precautions. The patient is currently denying any thoughts, plans, or intents to hurt herself. She says she is no longer having suicidal thoughts. She is able to contract for safety. 3. After discussing the risks, benefits, and side effects of multiple medications and reviewing the patient and her family's reflections about the previous benefits that they had noticed when the patient was on medications, the patient, her mother, and boyfriend all decided that Wellbutrin was the best possible medication for her. It is the one that they said was the most helpful for her in the past, and patient said that she wanted to restart that here, and knew that she would need to follow up with an outpatient psychiatrist in order to have that dosed, appropriately titrated, and possibly augmented with other medications. Patient said that she would need to see a provider closer to where her mother lives since that is where she is going to be staying, so that rn coronary care unit, Sancho, was going to set her up with appointment through [facility]. She said that she would like to also receive individual therapy and possibly group therapy services there. MD strongly encouraged the patient to see a certified addictions counselor and possibly do a substance use group as her ongoing use of alcohol and marijuana have been a significant precipitant I think to her decompensation, her worsening depression, as well as her increased anxiety, panic. Patient admits that she was not using good judgment when she took the overdose, and might not have been so willing to act on her suicidal thoughts if she had not been intoxicated at that time. stressed that both alcohol and cannabis use leads to worsening depression, and that people are at greater risk because their judgment is impaired. They are more likely to do impulsive things, to act without thinking, and that this was a critical issue that needed to be addressed in terms of outpatient treatment in order for her to get maximum benefit from being on psychiatric medications in order for her to experience sufficient relief from her depression and her anxiety in order to be able to function as she said "normally.". 4. process coordinator, Sancho, is going to try to make one last appointment with Jay Tom, since he is the patient's current provider. Should be able to get an appointment with him sooner, and he can bridge her until she is able to see a new provider through [facility]. 5. Patient says that she is going to go and live with her mom, and that she is going to take a semester off school and try to get stable, and then [facility]. 6. Estimated length of stay is 2-3 days. /[id number]/MODL MTDD
[2017-12-11] MEDS: traZODone 50 MG TAB PO PRN (19:56)
[2017-12-12] MEDS: buPROPion XL 150 MG TAB PO SCH (09:01)
[2017-12-12] MEDS ORDERED: THYROID 60 MG TAB PO SCH (10:00)
--- NOTE | 2017-12-12 16:03 | SOAPPROG ---
SOAP Progress Note Assessment/Plan: Assessment: 22 yo woman with h/o depression, anxiety and borderline personality traits was admitted s/p OD on Rx pills. Plan: 12/12/17 15:59 1. Tolerated Wellbutrin w/o complaints or SE's this AM. 2. Patient c/o Nausea and upset stomach. She took MOM which "helped." 3. Patient is looking forward [place] [facility] [place] but says she will "miss" her boyfriend. 4. Change to voluntary status. Subjective: Met with patient, reviewed chart and d/w staff. Patient was lying in bed, c/o upset stomach. She said she felt "sad" b/c she just had visit with her boyfriend and she is going to "miss" him when she moves to her [facility], but she also knows it is the "right thing to do." Patient denies feeling depressed, hopeless or helpless. She says she no longer has thoughts about wanting to and has no intent or plan to hurt herself or anyone else when she discharges. Objective: Vital Signs Temp Pulse Resp BP Pulse Ox 37.3 C 108 H 14 116/67 95 12/12/17 06:00 12/12/17 06:00 12/12/17 06:00 12/12/17 06:00 12/12/17 06:00 MSE: Affect: Euthymic Mood: "OK" TP: Linear TC: No SI/HI, no AH/VH Insight/ Judgment: Fair - Time Spent With Patient Time Spent With Patient: 20" - Pending Discharge Pending Discharge Within 24 Hours: No Pending Discharge Within 48 Hours: No ICD10 Worksheet Patient Problems: Problems Problem Status Onset Drug overdoses Acute
[2017-12-12] MEDS: traZODone 50 MG TAB PO PRN (20:54)
[2017-12-13 07:00] VITALS: BP 116/71; PULSE 113; RESP 16; TEMP 97.9; O2SAT 96
[2017-12-13] MEDS: THYROID 60 MG TAB PO SCH (08:21)
[2017-12-13] MEDS: buPROPion XL 150 MG TAB PO SCH (08:22)
--- NOTE | 2017-12-14 14:36 | BDS ---
[f rep st] BEHAVIORAL HEALTH DISCHARGE SUMMARY REASON FOR ADMISSION: This is a 22-year-old single [employer] student with a known history of depression and anxiety. She presented to the [facility] ED following a suicide attempt by OD on 12/06/2017. Patient was medically cleared on 2017. She was placed on a mental health hold on 12/06. Prior to the expiration of this 1st hold, a 2nd hold was placed on 12/09/2017. According to the original hold, police were called by the patient's boyfriend. The boyfriend called because the patient had taken several pills. Upon arrival, patient was responsive, but her responses were delayed. She said she had taken ten 0.5 mg clonazepam and about 30 Wellbutrin XL and several trazodone pills, along with using marijuana. The boyfriend said the patient has a history of depression and has experienced suicidal thoughts in the past. Records indicated the patient had what looked like "seizure-like behaviors" but was not deemed to be a seizure while she was in the ICU. She was placed on Keppra but then taken off that when it was deemed that she was outside the window of risk and that it was low probability that the abnormal behaviors that she experienced were seizure related. She was seen by a neurologist on the medical floor, Dr. Tyree Galvez. He saw her on 12/07/2017. Dr. Galvez noted that, on 12/07, "the morning nurse witnessed an event with back arching, limb stiffening, fine shaking of the limbs and eye closure, to which she was responsive to the nurse during the event." Dr. Galvez concluded "the patient with spells of abnormal behavior which are not too compelling for seizure. Specifics that argue against seizure include back and forth head movement, eye closure, ability of patient to respond during the time of the episode. She does have substrate for provoked seizures, including possible alcohol abuse with withdrawal and ingestion of excessive bupropion. In any event, I do not think it is unreasonable to continue Keppra for prophylaxis. However, it would also be reasonable to discontinue and observe. Can treat seizures with p.r.n. lorazepam for activity concerning for seizure lasting longer than 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 DIAGNOSES: 1. Major depressive disorder, single episode, recurrent, without psychotic features. 2. Alcohol use disorder, severe. 3. Cannabis use disorder, severe. 4. Rule out generalized anxiety disorder versus substance-induced mood disorder. 5. Psychosocial stressors include lack of social support, boyfriend is her only stable relationship. She says she has tension and conflict with her parents. She is unemployed. She is struggling in school, has academic difficulties, financial problems, and ongoing substance use. PHYSICAL EXAMINATION: The admitting physical examination was done by Dr. Ben Shine. It revealed no acute physical findings. ADMISSION LABS: No labs were available. HOSPITAL COURSE: When the patient was admitted to the inpatient Behavioral Health Services Unit on , she denied any thoughts, plans, or intents to hurt herself. She said she was no longer feeling sad or depressed. She no longer had feelings of helplessness or hopelessness. She said she no longer wanted to . She said she was optimistic and looking forward to the future. She said she was disappointed and sad that she would not be able to live with her boyfriend anymore but that she agreed with her mother that the best idea was for her to take some time off from school and move back in with her parents , where she could get emotional support and she could get supervision and monitoring. Patient said that she was willing to go to a mental health provider closer to where her mother lived, and she was given followup appointments with [facility]. Mother said that she would like to accompany the patient to her appointments because Mom wanted to participate in her treatment and give her whatever support she needed. The patient said that this she thought this was "a good idea," and she agreed to do that. Patient largely admitted that her suicidal thoughts were brought on by situational stressors. She said that, whenever she has external pressures in her life, she feels worse. She says she has been struggling in school and feels "overwhelmed." Said that it was an impulsive act for her to take the overdose because she was dealing with "too many things all at once." mentioned the risks, benefits, and side effects of polypharmacy and discussed that, as long as the patient continues to drink alcohol, it is unlikely that she would experience maximum benefit from any psychotropic medication combination and explained how alcohol affects mood, cognition and judgment, as well as increasing her risk of impulsive acts of self-harm. Patient said that she understood that. She said she would like to get back on Wellbutrin but would like to hold off on any other medications until she sees her new outpatient providers through the [facility]. She said she did intend to stop drinking and would seek treatment through [facility], either through a certified addictions counselor, an individual therapist, and/or in a substance abuse group. She was open to the idea of attending chemical dependency IOP, but she wanted to talk to the internet marketing coordinator at [facility] before making a decision. Patient was requesting to be put back on Wellbutrin. After reviewing the risks, benefits, and side effects of this medication, she consented to restarting it at a lower dose here in the hospital. Mother and boyfriend were both present in the room when patient made that decision. They both agreed that Wellbutrin had been the most helpful of her medications, and they agreed with the plan to follow up with outpatient therapy as well as do some substance abuse treatment. At the time of discharge, patient was stable. Her affect was euthymic. She was appropriate. She was voicing no thoughts of suicide. There was no evidence of any psychosis or steven. Her affect was bright and cheerful. She was positive and optimistic and future oriented. DISCHARGE MEDICATIONS: Wellbutrin XL 150 mg p.o. daily, and she was given a prescription for trazodone 50 mg p.o. q.h.s. p.r.n. for sleep. The patient has [place] Thyroid which she takes 90 mcg every other day and 120 mg every other day. She says that she has enough of those medications at home. Effexor was discontinued during this hospitalization, as well as it was recommended that she lower her dose of trazodone from 100 mg to 50 mg. MD encouraged patient not to use benzodiazepines, which she had been prescribed in the past, due to the risk of dependence and withdrawal-related rebound anxiety, and MD had warned the patient about the risk associated with combining Wellbutrin, trazodone, and Ativan with alcohol. The patient said she understood all these instructions. Her attitude at discharge was excited and optimistic. She said that she was feeling very positive and that she had benefitted from her treatment in the hospital and had a new plan about how to get her life back on track. DISPOSITION: The patient has a followup appointment with Jay Goel, the outpatient psychiatrist who been prescribing for her at [facility]. She sees him on 12/22/2017, and then she has an intake appointment through the [facility] on December 25, 2017. Patient was given a 14-day supply of Wellbutrin and trazodone to last her until she saw Jay Goel. LEGAL COURSE: The patient was changed to voluntary status at the expiration of her M1 hold, and she was discharged as a voluntary patient. /[id number]/MODL MTDD
== END 2017-12-13 12:07 | disposition home or self-care (01) | DRG 885 ==
LOC: BBEH 22:25
PROVIDERS: ADMIT Psychiatry & Neurology Psychiatry; ATTEND Psychiatry & Neurology Psychiatry
DX: F33.0 Major depressive disorder, recurrent, mild (principal); Z72.89 Other problems related to lifestyle; E03.9 Hypothyroidism, unspecified; E66.9 Obesity, unspecified; F12.90 Cannabis use, unspecified, uncomplicated

== ENCOUNTER 2018-03-25 18:54 | Emergency (ER) | payer OTHER ==
[2018-03-25] MEDS ORDERED: IPRATROPIUM/ALBUTEROL 3 ML DEYVIAL IH ONE (19:18)
--- NOTE | 2018-03-25 19:30 | EDPHY ---
H & P Stated Complaint: sob increasing lately/d dimer positive - Personal History LMP (Females 10-55): Now Current Tetanus Diphtheria and Acellular Pertussis (TDAP): Yes - Medical/Surgical History Hx Asthma: No Hx Chronic Respiratory Disease: No Hx Diabetes: No Hx Cardiac Disease: No Hx Renal Disease: No Hx Cirrhosis: No Hx Alcoholism: No Hx HIV/AIDS: No Hx Splenectomy or Spleen Trauma: No Other PMH: Anxiety, depression, hypothyroidism - Social History Smoking Status: Never smoked <Uriel Dominguez - Last Filed: 03/25/18 20:42> <Korina Little - Last Filed: 03/28/18 22:18> Time Seen by Provider: 03/25/18 19:07 Constitutional: Initial Vital Signs Temperature (C) 37.4 C 03/25/18 18:57 Heart Rate 98 03/25/18 18:57 Respiratory Rate 18 03/25/18 18:57 Blood Pressure 117/68 03/25/18 18:57 O2 Sat (%) 95 03/25/18 18:57 O2 Delivery Mode Room Air Allergies/Adverse Reactions: No Known Allergies Allergy (Verified 03/25/18 18:56) Home Medications: Medication Instructions Recorded Thyroid [[place] Thyroid 60 MG (*)] 90 mg PO Q2D 12/06/17 Thyroid [[place] Thyroid 60 MG (*)] 120 mg PO Q2D 12/06/17 buPROPion XL [Wellbutrin 150mg XL] 150 mg PO DAILY #14 tab 12/13/17 Medical Decision Making <Uriel Dominguez - Last Filed: 03/25/18 20:42> - Diagnostics Imaging: Discussed imaging studies w/ environmental inspector Radiologist <Korina Little - Last Filed: 03/28/18 22:18> - Diagnostics Imaging Results: Impression: No evidence of pulmonary thromboembolic disease. Results called and discussed with Korina Little M.D., on March 25, 2018 at 2148. E:amm Dictated By : Rj Martinez MD (Korina Little) ED Course/Re-evaluation: CHIEF COMPLAINT: Elevated d-dimer HISTORY OF PRESENT ILLNESS: This patient is a 23 year old female presenting at the request of her primary care provider for evaluation of an elevated D-dimer. She was evaluated by Dr. Jarred today for difficulty breathing when lying down. This has been worsening over the past several months. The patient denies any recent prolonged travel. No pain or swelling in her calves. She states she has always had some difficulty breathing when exercising. Negative pulmonary function tests today per patient. Her sister has protein C deficiency and has had two prior pulmonary embolisms, but the patient states she personally has tested negative for clotting disorders. She denies fever, chest pain, abdominal pain, urinary complaints, or other associated symptoms. REVIEW OF SYSTEMS: A 10 point review of systems was performed and is negative with the exception of the elements mentioned in the history of present illness. PHYSICAL EXAM: HR, BP, O2 Sat, RR. Temp noted General Appearance: Alert, well hydrated, appropriate, and non-toxic appearing. Head: Atraumatic without scalp tenderness or obvious injury Eyes: Pupils equal, round, reactive to light and accommodation, EOMI, no trauma , no injection. Ears: Clear bilaterally, no perforation, normal landmarks Nose: Atraumatic, no rhinorrhea, clear. Throat: There is no erythema or exudates, no lesions, normal tonsils, mucus membranes moist. Neck: Supple, nontender, no lymphadenopathy. Respiratory: No retractions, no distress, no wheezes, and no accessory muscle use. Lungs are clear to auscultation bilaterally. Cardiovascular: Regular rate and rhythm, no murmurs, rubs, or gallops. Bilateral carotid, radial, dorsalis pedis, and posterior tibial pulses intact. Good capillary refill all extremities. Gastrointestinal: Abdomen is soft, nontender, non-distended, no masses, no rebound, no guarding, no peritoneal signs. Musculoskeletal: Normal active ROM of all extremities, atraumatic. Neurological: Alert, appropriate, and interactive. Nonfocal neuro exam. Skin: No rashes, good turgor, no nodules on palpation. Past medical history: Hypothyroid ([place] thyroid). Also takes Wellbutrin. Past surgical history: Noncontributory. Family history: Noncontributory. Social history: Employed. Significant other at bedside. Lives in [place]. DIFFERENTIAL DIAGNOSIS: The differential diagnosis for the patient's shortness of breath and hypoxemia included but was not limited to pneumonia, myocardial infarction, acute mountain sickness, high altitude pulmonary edema, congestive heart failure, and pulmonary embolus. MEDICAL DECISION MAKIN23 y/o female presents for PE rule out after having a positive d-dimer test earlier today. The patient is not tachypneic or tachycardic. Lungs are clear to auscultation bilaterally. SpO2 on room air 95%. No unilateral leg swelling, hemoptysis, recent surgery, recent trauma, or personal history of clotting. Her symptoms have been ongoing for several months, and are worse when the patient is at rest. Given her history and presentation, I think PE is unlikely. However , since the patient had an elevated d-dimer in the outpatient setting and was referred here for PE rule out, I will complete CTA of the chest. Plan for I-stat. Plan to administer DuoNeb. Plan for CT as above to r/o PE. 20:15 Care of this patient transferred to Dr. Little at shift change pending CT result. (Uriel Dominguez) Other Provider: CT scan negative for thromboembolic disease. Discussed importance of follow up for ongoing evaluation of her symptoms with patient. (Korina Little) - Data Points Medications Given: Discontinued Medications Albuterol/Ipratropium (Duoneb) 3 ml IH EDNOW ONE Stop: 03/25/18 19:19 Last Admin: 03/25/18 19:32 Dose: 3 ml Point of Care Test Results: Chemistry 03/25/18 19:28 POC Sodium 144 mEq/L mEq/L (135-145) POC Potassium 3.9 mEq/L mEq/L (3.3-5.0) POC Chloride 108 mEq/L mEq/L (97-110) POC BUN 13 mg/dL mg/dL (7-23) POC Creatinine 0.9 mg/dL mg/dL (0.6-1.0) POC Glucose 105 mg/dL H mg/dL (70-100) ISTAT H&H 03/25/18 19:28 POC Hgb 14.3 gm/dL gm/dL (12.6-16.3) POC Hct 42 % % (38-47) Departure <Uriel Dominguez - Last Filed: 03/25/18 20:42> <Korina Little - Last Filed: 03/28/18 22:18> - Departure Disposition: Home, Routine, Self-Care Clinical Impression: Shortness of breath Condition: Good Instructions: Dyspnea (ED), Shortness of Breath (ED) Additional Instructions: Please follow up with Dr. Franz as previously directed. Referrals: LILY FRANZ [Primary Care Provider] - As per Instructions
[2018-03-25] MEDS ORDERED: IOPAMIDOL (ISOVUE 370) 100 ML BTL IV ONE (21:04)
[2018-03-25 22:20] VITALS: BP 112/79
== END 2018-03-25 22:25 | disposition home or self-care (01) ==
DX: R06.02 Shortness of breath (principal)
CPT/HCPCS: 82947-QW; Q9967

== ENCOUNTER → 2018-06-18 | Outpatient (CLI) | payer OTHER | LOC: BMCIMAGING 13:32 | PROVIDERS: ATTEND Internal Medicine Endocrinology, Diabetes & Metabolism | DX: E04.9 Nontoxic goiter, unspecified (principal) | CPT/HCPCS: 76536-PO ==